=== PATIENT | female | born 1985 | race Caucasian/White ===

== ENCOUNTER 2024-12-03 18:34 | Outpatient (OUT) | payer BC, SELFPAY ==
--- NOTE | 2024-12-03 | US_ITS ---
The [address] [address] Patient Name: YOLANDA VAUGHN MRN: [id number] date: 1985 Sex: F Assigned Patient Location: Current Patient Location: Accession/Order Number: [id number] Exam Date: 12/03/2024 19:25 Report Date: 12/04/2024 08:45 At the request of: MEÑO GRUBER Procedure: US extremity nonvascular RT Soft tissue ultrasound. Reason for exam: Right leyva lump. COMPARISON: None. TECHNIQUE: Grayscale and color Doppler images of the area of concern was obtained. FINDINGS: In the area concern involving the right leyva, a hyperechoic mass is seen measuring 2.1 x 1.3 x 0.7 cm suggestive of a lipoma. No fluid collection is seen. No significant hyperemia on color Doppler imaging. US/US extremity nonvascular RT IMPRESSION: No area of lump involving the right leyva, a lipoma is present measuring 2.1 x 1.3 x 0.7 cm. Impression dictated by: Guido Mike Jr., D.O. 12/04/2024 8:45 AM Dictation Location: [place] [address] Electronically authenticated by: [id number] Date: 12/04/2024 08:45
== END 2024-12-03 18:35 | disposition home or self-care (01) ==
LOC: US 18:37
PROVIDERS: PCP Nurse Practitioner Family; Visit Provider Nurse Practitioner Family
DX: R22.41 Localized swelling, mass and lump, right lower limb (principal)
CPT/HCPCS: 76882